=== PATIENT | male | born 1985 | race Caucasian/White ===

== ENCOUNTER 2019-11-26 22:31 | Emergency (ER) | payer OTHER ==
[~2019-11-26] VITALS: Ht 190.5 cm; Wt 93.0 kg
[2019-11-26] MEDS ORDERED: ZOLOFT100 MG PO (22:49)
== END 2019-11-27 00:24 | disposition home or self-care (01) ==
LOC: ED 22:31
DX: G40.909 Epilepsy, unspecified, not intractable, without status epilepticus (principal); S06.0X9A Concussion with loss of consciousness of unspecified duration, initial encounter; S01.111A Laceration without foreign body of right eyelid and periocular area, initial encounter; X58.XXXA Exposure to other specified factors, initial encounter; Z87.891 Personal history of nicotine dependence; Z79.899 Other long term (current) drug therapy
CPT/HCPCS: 70450; 72125; 80053; 85025; 99284-25